=== PATIENT | male | born 2000 | race Caucasian/White ===

== ENCOUNTER 2023-01-28 08:08 | Outpatient (REF) | payer BC, OTHER, SELFPAY ==
[2023-01-28 11:55] LABS: Alanine Aminotransferase 23 U/L (0-40); Albumin Level 4.4 g/dL (3.5-5.0); Alkaline Phosphatase 90 U/L (39-117); Anion Gap 15 (12-20); Aspartate Amino Transferase 23 U/L (5-37); Bilirubin Total 0.7 mg/dL (0.0-1.0); Blood Urea Nitrogen 10 mg/dL (9-16); Carbon Dioxide 25 mmol/L (22-29); Chloride 107 mmol/L (96-108); Cholesterol 118 mg/dL; Estimated Glomerular Filt Rate > 60; Glucose Fasting 91 mg/dL (60-99); HDL Cholesterol 53 mg/dL; LDL Cholesterol Calculated 58 mg/dl; Potassium 4.7 mmol/L (3.3-5.1); Sodium 142 mmol/L (135-145); Total Protein 7.4 g/dL (6.5-8.0); Triglycerides 37 mg/dL
[2023-01-28 12:11] LABS: HBS Num1 0.64 mIU/mL (0-7.99); HBc Num1 0.12 S/CO (0.00-0.79); HBsAGNum1 0.43 S/CO (0.00-0.99); HIV AB/AG Nonreactive (Nonreactive); HIV Num 1 0.16 S/CO (0.00-0.99); Hepatitis B Core Antibody Nonreactive (Nonreactive); Hepatitis B Surface Antigen Negative (Negative); Syphilis Screen Nonreactive (Nonreactive); ~HepC Num1 0.07 S/CO (0.00-0.79); ~Hepatitis B Surface Antibody NONREACTIVE (Nonreactive); ~Hepatitis C Antibody Nonreactive (Nonreactive)
[2023-01-28 12:17] LABS: TSH reflex Free T4 0.74 uIU/mL (0.32-4.0)
[2023-01-28 13:55] LABS: Appearance Urine Clear; Color Urine Yellow; Glucose Urine UA Negative (Negative); Leukocyte Esterase Urine Negative (Negative); Nitrite Urine Negative (Negative); Urine Blood Negative (Negative); Urine Ketones Negative (Negative); Urine Protein Negative (Neg-Trace)
[2023-01-28 15:13] LABS: Creatinine Urine 163.57 mg/dL; Microalbum/Creatinine Ratio Ur 3.6 ug/mg cr
[2023-01-28 15:37] LABS: CT PCR NOT DETECTED (Not Detect.); NG PCR NOT DETECTED (Not Detect.)
== END 2023-01-28 08:09 | disposition home or self-care (01) ==
LOC: HO.HMGCLDS 08:08
PROVIDERS: PCP Family Medicine; Visit Provider Family Medicine
DX: Z00.00 Encounter for general adult medical examination without abnormal findings (principal); I10 Essential (primary) hypertension; Z11.4 Encounter for screening for human immunodeficiency virus [HIV]; Z20.2 Contact with and (suspected) exposure to infections with a predominantly sexual mode of transmission
CPT/HCPCS: 0353U; 80053; 80061; 81003; 82043; 84443; 86704; 86706; 86780; 86803; 87340; 87389

== ENCOUNTER 2024-07-15 07:29 | Outpatient (REF) | payer BC, OTHER, SELFPAY ==
[2024-07-15 10:17] LABS: MANUAL DIFF FLAG NO
[2024-07-15 10:30] LABS: Basophils Percent Auto 0.2 % (0-2); Eosinophils Absolute Auto 0.1 X10*3/uL (0.0-0.4); Eosinophils Percent Auto 0.9 % (0-4); Hematocrit 44.6 % (42.0-52.0); Hemoglobin 15.1 g/dl (14.0-18.0); Imm Gran Abs Auto 0.02 X10*3/uL (0.00-0.03); Imm Gran Pct Auto 0.3 % (0.0-0.4); Lymphocytes Absolute Auto 1.4 X10*3/uL (1.2-4.9); Lymphocytes Percent Auto 24.1 % (20-40); Mean Corpuscular HGB Conc 33.9 g/dl (31.0-36.0); Mean Corpuscular Hemoglobin 29.9 pg (27.0-33.0); Mean Corpuscular Volume 88.3 fL (80.0-98.0); Mean Platelet Volume 9.4 fL (9.4-12.4); Monocytes Absolute Auto 0.6 X10*3/uL (0.1-1.2); Monocytes Percent Auto 10.6 % (2-11); Neutrophils Absolute Auto 3.7 x10*3/uL (2.0-8.3); Neutrophils Percent Auto 63.9 % (45-73); Platelet Count 227 X10*3/uL (160-400); Red Blood Count 5.05 X10*6/uL (4.60-5.80); Red Cell Distribution Width 12.6 % (11.0-16.0); White Blood Count 5.8 X10*3/uL (4.8-10.8)
[2024-07-15 11:00] LABS: Appearance Urine Clear; Color Urine Yellow; Glucose Urine UA Negative (Negative); Leukocyte Esterase Urine Negative (Negative); Nitrite Urine Negative (Negative); Specific Gravity - Urine 1.025 (1.005-1.025); Urine Blood Negative (Negative); Urine Ketones Negative (Negative); Urine Protein Negative (Neg-Trace)
[2024-07-15 11:19] LABS: Alanine Aminotransferase 30 U/L (0-40); Albumin Level 4.3 g/dL (3.5-5.0); Alkaline Phosphatase 94 U/L (39-117); Anion Gap 12 (12-20); Aspartate Amino Transferase 38 U/L (5-37); Bilirubin Total 0.8 mg/dL (0.0-1.0); Blood Urea Nitrogen 16 mg/dL (9-16); Calcium 9.6 mg/dL (8.4-10.2); Carbon Dioxide 28 mmol/L (22-29); Chloride 106 mmol/L (96-108); Cholesterol 126 mg/dL (<200); Estimated Glomerular Filt Rate > 60; Glucose Fasting 133 mg/dL (60-99); HDL Cholesterol 50 mg/dL (>40); LDL Cholesterol Calculated 67 mg/dL (<100); Potassium 4.8 mmol/L (3.3-5.1); Sodium 141 mmol/L (135-145); TSH reflex Free T4 0.65 uIU/mL (0.32-4.0); Total Protein 7.3 g/dL (6.5-8.0); Triglycerides 49 mg/dL (<150)
[2024-07-15 11:29] LABS: Creatinine Urine 186.71 mg/dL; Microalbum/Creatinine Ratio Ur 3.7 ug/mg cr (<30)
== END 2024-07-15 07:30 | disposition home or self-care (01) ==
LOC: HO.HMGCLDS 07:29
PROVIDERS: PCP Family Medicine; Visit Provider Family Medicine
DX: Z00.00 Encounter for general adult medical examination without abnormal findings (principal); I10 Essential (primary) hypertension
CPT/HCPCS: 36415; 80053; 80061; 81003; 82043; 82570; 84443; 85025

== ENCOUNTER 2024-07-22 08:47 | Outpatient (AMB) | payer BC, OTHER, SELFPAY ==
--- NOTE | 2024-07-22 08:57 | A.OFFPC_ITS ---
Vital Signs 07/22/24 09:00 Height 5 ft 8 in Weight 214 lb 2 oz BMI 32.6 BP 114/62 Blood Pressure Location Rt brachial Position Sitting Respiration 16 Pulse 87 Pulse Source Pulse Oximeter Temp 98.1 F Temp Source Oral Pulse Oximetry (%) 99 Oxygen Delivery Method Room Air Intake Visit Reasons: Extended exam with f/u labs and health maintenance Intake Note: extended exam w/follow up labs Allergies No Known Allergies Allergy (Verified 07/22/24 08:57) Medication List - Last Reconciled 07/22/24 by Shakir Rodriges MD dexmethylphenidate ER (Focalin XR) 25 mg PO QAM fluoxetine 30 mg PO DAILY risperidone 1 mg PO DAILY Tobacco use date assessed: 07/22/24 Dental Screening Dental Screen Date: 07/22/24 Did you have a dental visit in the last 12 months?: Yes Did you have a dental problem in the last 6 months where you did not have access to dental care?: No Was dental information given to patient?: Patient has dentist HPI Extended exam with f/u labs and health maintenance HPI Details 23 y/o male presents for a CPE with f/u labs and health maintenance. Labs drawn 07/15/24. Reviewed labs with pt. Elevated fasting glucose of 133. A1c today 5.0%. He had noted he had a little bit of coffee prior to his lab draw. Elevated AST of 38. He drinks EtOH maybe once a month. Triglycerides 49. TC 126. LDL 67. HDL 50. TSH 0.65. Reports chest pain which he describes as muscular. Worse with movement. He notes he had used to get chest pain all the time while running when he was in school. HPI Comments History of Present Illness Details Documentation assistance for Shakir Rodriges MD, was provided by Jde Gross, Gluing Machine Operator on 07/22/2024 at 9:22 AM MORENA. I, Dr. Rodriges, have read, observed, and verified documentation. [facility] Medical History ADD (attention deficit disorder) Depression Family History Father Substance abuse Mental health disorder Brother Substance abuse Social History Household Members: Family Household Members Other:: mom, brother Both parents involved: Yes Caregiver staying overnight: No Housing: House Are you a primary lawn care professional to a significant other at home: No Do you presently have visiting nurse or other home services: No 75 years or older and lives alone: No Unable to assess alcohol history related to: Unknown Patient Tobacco Use Status: Never used Tobacco e-Cigarette/Vaping Use: Never Used service: No Current occupational status: employed 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 Cognitive needs: No Hearing needs: No Vision needs: No Questionnaire PHQ-9 Over the last 2 weeks, how often have you been bothered by any of the following problems? 1. Little interest or pleasure in doing things: not at all 2. Feeling down, depressed, or hopeless: several days 3. Trouble falling or staying asleep, or sleeping too much: several days 4. Feeling tired or having little energy: several days 5. Poor appetite or overeating: not at all 6. Feeling bad about yourself - or that you are a failure or have let yourself or your family down: several days 7. Trouble concentrating on things, such as reading the newspaper or watching television: not at all 8. Moving or speaking so slowly that other people could have noticed. Or the opposite - being so fidgety or restless that you have been moving around a lot more than usual: not at all 9. Thoughts that you would be better off or of hurting yourself in some way: not at all Total score: 4 Source: Developed by Drs. Agapiot Jiménez, Deborah Richter, Anselmo Duvall and colleagues, with an educational kulwant from [employer]. Thrive Questionnaire Date Thrive assessed: 07/22/24 I am a: Patient What is your living situation today?: I have a steady place to live Within the past 12 months, did the food you bought not last and you didn't have the money to get more?: Never true Within the past 12 months, did you worry whether your food would run out before you got money to buy more?: Never true Do you have trouble paying for medicines?: No Do you have trouble getting transportation to medical appointments?: No Do you have trouble paying your heating and electricity bill?: No Do you have trouble taking care of your child, family member or friend?: No Do you have trouble with day-to-day activities such as bathing, preparing meals, shopping, managing finances, etc.?: No Are you currently unemployed and looking for a job?: No Are you interested in more education?: I choose not to answer this question Please select the resources that you would like help with: None Currently or been in a relationship where the following occur: No concerns reported THRIVE Score: 0 AUDIT C Alcohol Use Questionnaire (AUDIT-C) 1. How often do you have a drink containing alcohol?: Monthly or less 2. How many drinks containing alcohol do you have on a typical day when you are drinking?: 1 or 2 3. How often do you have six or more drinks on one occasion?: Never Total Score: 1 VONDA-7 AMB Questionnaire VONDA-7 Date VONDA - 7 assessed: 07/22/24 Feeling nervous, anxious, or on edge: 1 = Several days Not being able to stop or control worryin = Several days Worrying too much about different things: 1 = Several days Trouble relaxin = Several days Being so restless that it is hard to sit still: 1 = Several days Becoming easily annoyed or irritable: 2 = More than half the days Feeling afraid as if something awful might happen: 1 = Several days Total VONDA-7 score (0-4 normal; 5-9 mild; 10-14 moderate; 15-21 severe): 8 Source: Developed by Drs. Agapito Jiménez, Deborah Richter, Anselmo Duvall and colleagues, with an educational kulawnt from [employer]. VONDA-7 Assessment Billing VONDA-7 Assessment Tool: VONDA-7 Assessment 88583 Review of Systems Const Denies chills, Denies fatigue, Denies fever(s), Denies headache(s) and Denies weakness Eyes Denies change in vision ENT Denies dizziness and Denies headache(s) Card Denies dyspnea Resp Denies cough, Denies dyspnea, Denies wheezing and Denies other (shortness of breath) GI Denies abdominal pain, Denies melena, Denies hematochezia, Denies change in bowel habits, Denies dyspepsia and Denies nausea Denies hematuria and Denies dysuria Musc Denies numbness and Denies tingling Skin/Breast Denies rash, Denies unusual bruising and Denies wounds Neuro Denies dizziness, Denies headache(s), Denies numbness, Denies Sensory deficit (Neuro), Denies tingling and Denies weakness Psych Denies anxiety and Denies depression Endo Denies fatigue Negrito/Lymph Denies easy bleeding and Denies easy bruising Aller/Immun Denies wheezing Physical exam (Primary Care) Vital Signs: Last Vital Signs Temp 98.1 F 07/22/24 09:00 Pulse 87 07/22/24 09:00 Resp 16 07/22/24 09:00 BP 114/62 07/22/24 09:00 Pulse Ox 99 07/22/24 09:00 Oxygen Delivery Method Room Air 07/22/24 09:00 BMI result Body Mass Index 32.6 Tobacco/Smoking Status: Tobacco use Status Tobacco use date assessed 07/22/24 07/22/24 08:59 Patient Tobacco Use Status Never used Tobacco 07/22/24 08:59 Tobacco use type 11/21/22 15:34 e-Cigarette/Vaping Use Never Used 07/22/24 08:59 PHQ-9: PHQ-9 Score PHQ-9: Total score 4 07/22/24 08:59 Thrive Assessment: Date of Thrive Assessment Date Thrive assessed 07/22/24 07/22/24 08:59 Currently or been in a relationship where the following occur: No concerns reported Const General: well developed; No acute distress Nutritional Appearance: well nourished Orientation/consciousness: patient oriented x3 HENMT Head: Yes normocephalic and Yes atraumatic Ears: hearing grossly normal bilaterally and TM's normal bilaterally General nose exam: Normal external nose present and Normal nares present Mouth: Normal oral and palatal mucosa present and moist mucous membranes Teeth and gingiva: dentition normal Throat: Yes posterior oropharynx normal Eyes General: appearance normal, both eyes and all related structures Pupils: Equal, round and reactive pupils present EOM: EOMs intact bilaterally Neck Neck: Yes normal visual inspection, Yes no lymphadenopathy and Yes trachea midline Thyroid: Thyroid normal Carotids: no bruits Lymphatic: no lymphadenopathy noted Chest Chest palpation & inspection: normal inspection of the chest Resp Effort & Inspection: normal respiratory effort Auscultation: clear to auscultation bilaterally Cardio Rate: regular rate Rhythm: regular rhythm Heart sounds: S1 normal heart sound present, S2 normal heart sound present, no gallops, no murmurs and no rubs Bruits: no abdominal aortic bruits and no carotid bruits GI Palpation (GI): No Abdominal aortic bruit present, Soft to palpation, nontender, No hepatosplenomegaly present and No Rebound tenderness present Auscultation: normal bowel sounds General: Yes no CVA tenderness Back/Spine/Pelvis Back: no CVA tenderness Cervical Spine: cervical ROM normal and No Cervical spine tenderness Thoracic/Lumbar Spine: thoraco-lumbar ROM normal, No pain with thoraco-lumbar ROM, No thoracic spinal tenderness and No lumbar spinal tenderness Skin Lesions: no lesions Rashes: no rashes Trauma: no lacerations or abrasions Wounds: no wounds Nails: normal Neuro General: patient oriented x3 and gait normal Cranial nerves: Yes Equal, round and reactive pupils present Cognition (Neuro): normal cognition Gait exam (Neuro): Normal gait present Motor exam (neuro): 5/5 motor strength present throughout Sensory Exam: No Sensory deficit (Neuro) Deep tendon reflexes (DTR's): Right patellar reflex intensity grade: 2+ and Left patellar reflex intensity grade: 2+ Extrem General: Yes normal to inspection and No edema Psych Appearance: grossly normal Affect: normal affect Attitude: cooperative Thought process: Normal thought process present Coding Level of Care Code Est Pt Level 3 (54957) Diagnoses Adult general medical examination Z00.00 Chest pain R07.9 Elevated AST (SGOT) R74.01 Elevated fasting glucose R73.01 Additional Codes VONDA-7 Assessment Billing - VONDA-7 Assessment Tool: VONDA-7 Assessment 60755 ([id number]) Assessment & Plan Assessment & Plan (1) Adult general medical examination: Code(s): Z00.00 - Encounter for general adult medical examination without abnormal findings Category: Medical Plan: 23-year-old?male?presents?for?complete?physical?exam Encouraged?healthy?diet?with?active?lifestyle?and?plenty?of?exercise (2) Chest pain: Code(s): R07.9 - Chest pain, unspecified Category: Medical Plan: Patient?describes?as?muscular?chest?pain?that?is?worse?with?moving. EKG: ?Normal?sinus?rhythm?with?sinus?arrhythmia,?normal?axis,?no?hypertrophy,?no?ST-T -wave?changes. Atypical?chest?pain?and?likely?musculoskeletal. He?will?let?know?if?anything?changes (3) Elevated AST (SGOT): Code(s): R74.01 - Elevation of levels of liver transaminase levels Category: Medical Plan: Mildly?elevated?AST Likely?secondary?to?hepatic?steatosis?and?encouraged?weight?loss Will?follow (4) Elevated fasting glucose: Code(s): R73.01 - Impaired fasting glucose Category: Medical Plan: Patient?is?fasting?blood?sugar?was?elevated. He?is?on?a?second-generation?antipsychotic?which?could?elevate?his?blood?sugar?a nd?he?is? also?mildly?obese.??He?is?unclear?about?family?history?of?diabetes?but?possibly? his?mother. He?also?notes?that?he?had?some?coffee?on?the?morning?of?his?blood?draw A1c?today: ?5.0%. May?have?some?mild ?insulin?resistance?but?unclear?as?he?also?says?he?had?a?little?bit?of?coffee?pr ior?to?his?lab?draw. We?can?continue?to?monitor Orders: Orders Comprehensive [place]. Panel Fast Today R74.01 - Elevation of levels of liver transaminase levels, Z00.00 - Encounter for general adult medical examination without abnormal findings Hemoglobin A1c Today R73.01 - Impaired fasting glucose Medications: Changed From fluoxetine 30 mg PO DAILY To fluoxetine 60 mg PO DAILY
[2024-07-22 09:00] VITALS: BP 114/62; PULSE 87; RESP 16; TEMP 36.7; O2SAT 99; BMI 32.6
== END 2024-07-22 09:53 | disposition home or self-care (01) ==
PROVIDERS: PCP Family Medicine; Visit Provider Family Medicine
DX: Z00.00 Encounter for general adult medical examination without abnormal findings (principal); R07.9 Chest pain, unspecified; R74.01 Elevation of levels of liver transaminase levels; R73.01 Impaired fasting glucose

== ENCOUNTER → 2024-07-22 08:47 | Outpatient (BNVA) | payer BC, OTHER, SELFPAY | PROVIDERS: PCP Family Medicine; Visit Provider Family Medicine | DX: Z00.01 Encounter for general adult medical examination with abnormal findings (principal); R07.89 Other chest pain; R74.01 Elevation of levels of liver transaminase levels; R73.01 Impaired fasting glucose | CPT/HCPCS: 96127 ==

== ENCOUNTER 2024-10-14 09:20 | Outpatient (REF) | payer BC, OTHER, SELFPAY ==
--- OUTSIDE RECORDS SUMMARY | 2024-10-14 10:24 | XMS_ITS | Clinical Summary ---
Author Organization Patient Business Ser [employer] [facility] Address [address] [place] [address] Care Team Providers Care Outpatient Surgery Rn Name Role Phone Unavailable Primary Care Provider Unavailabl e Social History Tobacco Use Types Packs/Day Years Used Date Smoking Tobacco: Never Assessed Sex and Gender Information Value Date Recorded Sex Assigned at Not on file Legal Sex Male 1:19 PM EDT Gender Identity Not on file Sexual Orientation Not on file Plan of Treatment Health Maintenance Due Date Last Done Comments HPV Vaccines (1 - Male 3-dos e series) 2013 DTaP,Tdap,and Td Vaccines (1 - Tdap) 2017 Hepatitis B Vaccines (1 of 3 - 19+ 3-dose series) 2017 Depression Screening 05/29/2022 HIV Screening 05/29/2022 Hepatitis C Screening 05/29/2022 Social Influencers of Health Screening 05/29/2022 COVID-19 Vaccine (1 - 2023-2 5 season) 2024 Influenza Vaccine (#1) 2024 HIB Vaccines Aged Out No longer eligi ble based on patient's age to complete this topic Hepatitis A Vaccines Aged Out No long er eligible based on patient's age to complete this topic IPV Vaccines Aged Out No longer eligi ble based on patient's age to complete this topic MMR Vaccines Aged Out No longer eligi ble based on patient's age to complete this topic Meningococcal ACWY Vaccine Aged Out N o longer eligible based on patient's age to complete this topic Meningococcal B Vacine Aged Out No lo nger eligible based on patient's age to complete this topic Pneumococcal Vaccine: Pediat rics (0 to 5 Years) and At-Risk Patients (6 to 64 Years) Aged Out No longer eligible b ased on patient's age to complete this topic RSV Immunization Patients Un rosie 20 months Aged Out No longer eligible b ased on patient's age to complete this topic Varicella Vaccines Aged Out No longer eligible based on patient's age to complete this topic
[2024-10-14 13:48] LABS: Estimated Average Glucose 94 mg/dL; Hemoglobin A1C 115.5854 umol/L; Hemoglobin A1c % 4.9 % (<6.0); Total Hemoglobin (HGBA1C) 3876.0732 umol/L
[2024-10-14 13:51] LABS: Alanine Aminotransferase 32 U/L (0-40); Albumin Level 4.2 g/dL (3.5-5.0); Alkaline Phosphatase 95 U/L (39-117); Anion Gap 10 (12-20); Aspartate Amino Transferase 33 U/L (5-37); Bilirubin Total 0.4 mg/dL (0.0-1.0); Blood Urea Nitrogen 16 mg/dL (9-16); Calcium 9.6 mg/dL (8.4-10.2); Carbon Dioxide 29 mmol/L (22-29); Chloride 106 mmol/L (96-108); Estimated Glomerular Filt Rate > 60; Glucose Fasting 97 mg/dL (60-99); Potassium 5.3 mmol/L (3.3-5.1); Sodium 140 mmol/L (135-145); Total Protein 7.6 g/dL (6.5-8.0)
== END 2024-10-14 09:21 | disposition home or self-care (01) ==
LOC: HO.HMGCLDS 09:20
PROVIDERS: PCP Family Medicine; Visit Provider Family Medicine
DX: Z00.00 Encounter for general adult medical examination without abnormal findings (principal); R74.01 Elevation of levels of liver transaminase levels; R73.01 Impaired fasting glucose
CPT/HCPCS: 36415; 80053; 83036

== ENCOUNTER 2024-10-21 09:14 | Outpatient (AMB) | payer BC, OTHER, SELFPAY ==
--- NOTE | 2024-10-21 09:32 | A.OFFPC_ITS ---
Vital Signs 10/21/24 09:33 Height 5 ft 8 in Weight 228 lb BMI 34.7 BP 120/80 Blood Pressure Location Rt brachial Position Sitting Respiration 14 Pulse 87 Pulse Source Pulse Oximeter Temp 98.1 F Temp Source Oral Pulse Oximetry (%) 98 Oxygen Delivery Method Room Air Intake Visit Reasons: f/u liver enzymes, blood sugar Intake Note: pt is here for lab review Air Conditioning Technician Required: No Allergies No Known Allergies Allergy (Verified 10/21/24 09:32) Medication List - Last Reconciled 10/21/24 by Shakir Rodriges MD dexmethylphenidate ER (Focalin XR) 25 mg PO QAM fluoxetine 60 mg PO DAILY risperidone 1 mg PO DAILY Tobacco use date assessed: 07/22/24 Dental Screening Dental Screen Date: 07/22/24 HPI f/u liver enzymes, blood sugar HPI Details 23 y/o male presents to f/u labs. Labs drawn 10/14/24. Reviewed labs with pt. A1c 4.9%. Potassium level mildly high at 5.3. Liver enzymes are fine. [facility] Medical History ADD (attention deficit disorder) Depression Family History Father Substance abuse Mental health disorder Brother Substance abuse Social History Household Members: Family Household Members Other:: mom, brother Both parents involved: Yes Caregiver staying overnight: No Housing: House Are you a primary care associate to a significant other at home: No Do you presently have visiting nurse or other home services: No 75 years or older and lives alone: No Unable to assess alcohol history related to: Unknown Patient Tobacco Use Status: Never used Tobacco e-Cigarette/Vaping Use: Never Used service: No Current occupational status: employed 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 Cognitive needs: No Hearing needs: No Vision needs: No Questionnaire PHQ-9 Over the last 2 weeks, how often have you been bothered by any of the following problems? 1. Little interest or pleasure in doing things: not at all 2. Feeling down, depressed, or hopeless: several days 3. Trouble falling or staying asleep, or sleeping too much: not at all 4. Feeling tired or having little energy: not at all 5. Poor appetite or overeating: not at all 6. Feeling bad about yourself - or that you are a failure or have let yourself or your family down: several days 7. Trouble concentrating on things, such as reading the newspaper or watching television: not at all 8. Moving or speaking so slowly that other people could have noticed. Or the opposite - being so fidgety or restless that you have been moving around a lot more than usual: not at all 9. Thoughts that you would be better off or of hurting yourself in some way: not at all Total score: 2 Source: Developed by Drs. Agapito Jiménez, Deborah Richter, Anselmo Duvall and colleagues, with an educational kulwant from [employer] Thrive Questionnaire Date Thrive assessed: 10/14/24 I am a: Patient What is your living situation today?: I have a steady place to live Within the past 12 months, did the food you bought not last and you didn't have the money to get more?: Never true Within the past 12 months, did you worry whether your food would run out before you got money to buy more?: Never true Do you have trouble paying for medicines?: No Do you have trouble getting transportation to medical appointments?: No Do you have trouble paying your heating and electricity bill?: No Do you have trouble taking care of your child, family member or friend?: No Do you have trouble with day-to-day activities such as bathing, preparing meals, shopping, managing finances, etc.?: No Are you currently unemployed and looking for a job?: No Are you interested in more education?: I choose not to answer this question Please select the resources that you would like help with: None Currently or been in a relationship where the following occur: No concerns reported THRIVE Score: 0 AUDIT C Alcohol Use Questionnaire (AUDIT-C) 1. How often do you have a drink containing alcohol?: Monthly or less 2. How many drinks containing alcohol do you have on a typical day when you are drinking?: 1 or 2 3. How often do you have six or more drinks on one occasion?: Never Total Score: 1 VONDA-7 AMB Questionnaire VONDA-7 Date VODNA - 7 assessed: 07/22/24 Feeling nervous, anxious, or on edge: 0 = Not at all Not being able to stop or control worryin = Not at all Worrying too much about different things: 0 = Not at all Trouble relaxin = Several days Being so restless that it is hard to sit still: 0 = Not at all Becoming easily annoyed or irritable: 1 = Several days Feeling afraid as if something awful might happen: 1 = Several days Total VONDA-7 score (0-4 normal; 5-9 mild; 10-14 moderate; 15-21 severe): 3 Source: Developed by Drs. Agapito Jiménez, Deborah Richter, Anselmo Duvall and colleagues, with an educational kulwant from [employer] Review of Systems Const Denies chills, Denies fatigue, Denies fever(s), Denies headache(s) and Denies weakness ENT Denies dizziness and Denies headache(s) Card Denies dyspnea Resp Denies cough, Denies dyspnea, Denies wheezing and Denies other (shortness of breath) Musc Denies numbness and Denies tingling Neuro Denies dizziness, Denies headache(s), Denies numbness, Denies tingling and Denies weakness Psych Denies anxiety and Denies depression Endo Denies fatigue Aller/Immun Denies wheezing Physical exam (Primary Care) Vital Signs: Last Vital Signs Temp 98.1 F 10/21/24 09:33 Pulse 87 10/21/24 09:33 Resp 14 10/21/24 09:33 BP 120/80 10/21/24 09:33 Pulse Ox 98 10/21/24 09:33 Oxygen Delivery Method Room Air 10/21/24 09:33 BMI result Body Mass Index 34.7 Tobacco/Smoking Status: Tobacco use Status Tobacco use date assessed 07/22/24 10/21/24 09:35 Patient Tobacco Use Status Never used Tobacco 10/21/24 09:35 Tobacco use type 11/21/22 15:34 e-Cigarette/Vaping Use Never Used 10/21/24 09:35 PHQ-9: PHQ-9 Score PHQ-9: Total score 2 10/21/24 10:02 Thrive Assessment: Date of Thrive Assessment Date Thrive assessed 03/05/25 03/12/25 09:35 Currently or been in a relationship where the following occur: No concerns reported Const General: well developed; No acute distress Nutritional Appearance: well nourished Orientation/consciousness: patient oriented x3 HENMT Head: Yes normocephalic and Yes atraumatic Eyes General: appearance normal, both eyes and all related structures Pupils: Equal, round and reactive pupils present EOM: EOMs intact bilaterally Resp Effort & Inspection: normal respiratory effort Auscultation: clear to auscultation bilaterally Cardio Rate: regular rate Rhythm: regular rhythm Heart sounds: S1 normal heart sound present, S2 normal heart sound present, no gallops, no murmurs and no rubs Neuro General: patient oriented x3 and gait normal Cranial nerves: Yes Equal, round and reactive pupils present Psych Affect: normal affect Coding Level of Care Code Est Pt Level 3 (28060) Diagnoses Elevated AST (SGOT) R74.01 Elevated fasting glucose R73.01 Assessment & Plan Assessment & Plan (1) Elevated AST (SGOT): Code(s): R74.01 - Elevation of levels of liver transaminase levels Category: Medical Plan: ASD?has?returned?to?normal?range Encouraged?ongoing?hydration?and?encouraged?weight?loss (2) Elevated fasting glucose: Code(s): R73.01 - Impaired fasting glucose Category: Medical Plan: Patient?had?h ad?an?elevated?fasting?blood?sugar?but?had?noted?that?his?blood?draw?was?not?[place]?fasting. More?recently,?repeat?blood?draw?shows?fasting?blood?sugar?in?normal?range?and?A 1c?is?normal. Orders: Orders Complete Blood Count Auto Diff Today Z00.00 - Encounter for general adult medical examination without abnormal findings UA and rflx microscopic Today Z00.00 - Encounter for general adult medical examination without abnormal findings Comprehensive [place]. Panel Fast Today Z00.00 - Encounter for general adult medical examination without abnormal findings Lipid Panel Today Z00.00 - Encounter for general adult medical examination without abnormal findings Microalbumin, Random (w Creat) Today I10 - Essential (primary) hypertension TSH reflex Free T4 Today Z00.00 - Encounter for general adult medical examination without abnormal findings
[2024-10-21 09:33] VITALS: BP 120/80; PULSE 87; RESP 14; TEMP 36.7; O2SAT 98; BMI 34.7
--- OUTSIDE RECORDS SUMMARY | 2024-10-21 09:56 | XMS_ITS | Clinical Summary ---
Author Organization Patient Business Ser [employer] [facility] Address [address] [place] [address] Care Team Providers Care Engraver Copperplate Name Role Phone Unavailable Primary Care Provider [...]
== END 2024-10-21 10:05 | disposition home or self-care (01) ==
LOC: HO.HMCFM 09:14
PROVIDERS: PCP Family Medicine; Visit Provider Family Medicine
DX: R74.01 Elevation of levels of liver transaminase levels (principal); R73.01 Impaired fasting glucose